=== PATIENT | female | born 1955 | race Caucasian/White ===

== ENCOUNTER → 2024-05-05 | Day surgery (SDC) | payer MEDICARE, BC ==
[2024-05-03 15:47] LABS: BASOPHILS # (AUTO) 0.1 X10'3 (0-0.2); BASOPHILS % (AUTO) 1.2 % (0-1); EOSINOPHILS # (AUTO) 0.1 X10'3 (0-0.9); EOSINOPHILS % (AUTO) 1.5 % (0-6); LYMPHOCYTES # (AUTO) 2.2 X10'3 (1.1-4.8); LYMPHOCYTES % (AUTO) 30.7 % (21-51); MEAN CORPUSCULAR HEMOGLOBIN 32.8 PG (27.0-31.0); MEAN CORPUSCULAR HGB CONC 33.5 g/dL (33.0-36.5); MEAN PLATELET VOLUME 9.1 FL (7.4-10.4); MONOCYTES # (AUTO) 0.6 X10'3 (0-0.9); MONOCYTES % (AUTO) 8.1 % (2-12); NEUTROPHILS # (AUTO) 4.2 X10'3 (1.8-7.7); NEUTROPHILS % (AUTO) 58.5 % (42-75); PRE OP HEMATOCRIT 44.8 % (35.0-45.0); PRE OP PLATELET COUNT 273 X10'3 (140-440); PRE OP WHITE BLOOD COUNT 7.2 10'3 (4.8-10.8); RED BLOOD COUNT 4.57 X10'6 (4.20-5.60); RED CELL DISTRIBUTION WIDTH 14.6 % (11.5-14.5)
[2024-05-03 15:59] LABS: ALBUMIN 3.7 G/DL (3.4-5.0); ALBUMIN/GLOBULIN RATIO 0.9 (1.1-1.5); ALKALINE PHOSPHATASE 96 IU/L (46-116); BLOOD UREA NITROGEN 12 MG/DL (7-18); BUN/CREATININE RATIO 13.5 (10.0-20.0); CALCIUM 9.8 MG/DL (8.5-10.1); CHLORIDE 101 MMOL/L (99-107); CREATININE 0.89 MG/DL (0.40-0.90); PRE OP ALT 33 U/L (30-65); PRE OP ANION GAP 9 (8-16); PRE OP AST 18 U/L (10-37); PRE OP BILIRUB, TOTAL 0.5 MG/DL (0.0-1.0); PRE OP GLUCOSE 102 MG/DL (70-104); PRE OP SODIUM 137 MMOL/L (135-145); TOTAL CARBON DIOXIDE 27.3 MMOL/L (24-32); eGFR 63 ML/MIN
[~2024-05-05] VITALS: Ht 172.7 cm; Wt 111.1 kg
[2024-05-05] VITALS (10 sets, daily range): BP systolic 148–162; BP diastolic 70–90; PULSE 60–73; RESP 14–22; TEMP 98.2; O2SAT 94–97
[~2024-05-05] MED LIST: APIX5TAB3 PO; BUPIVACAINE liposomal/PF 13.3 MG/ML vial IM ONE; BUPIVAcaine/PF 2.5mg/ml (0.25%) 10ml vial ONE; DILT240C47 PO; HYDROcodone/acetaminophen 5mg/325mg tablet PO ONE; LIDOcaine 1% 30ml preserv. free vial ONE; VALS1TAB81 PO; enalaprilat dihydrate 2.5mg/2ml vial IV PRN; fentaNYL/PF 50MCG/1 ML 2ML syringe ONE; labetalol 20mg/4ml (5mg/ml) syringe IV PRN; meperidine/PF 25mg/ml syringe IV PRN; methylene blue (5mg/ml) 50mg/10ml ampul IV ONE; morphine 2 MG/ML inj. syringe IV PRN; ondansetron/PF 4mg/2ml inj IV PRN; proCHLORperazine 10 MG/2 ml inj IV PRN; ringers solution, lacted 1,000 ML IV SCH
[2024-05-05] MEDS: famotidine 20mg tablet PO ONE (11:18)
[2024-05-05] MEDS: ringers solution, lacted 1,000 ML IV SCH (11:18)
[2024-05-05] MEDS: cefazolin 2gm/D5W 100mL 100 ML IV ONE (11:18)
[2024-05-05] MEDS: methylene blue (5mg/ml) 50mg/10ml ampul IV ONE (12:21)
[2024-05-05] MEDS: BUPIVAcaine/PF 2.5 mg/ml (0.25%) 30ml vial IJ ONE (13:15)
[2024-05-05] MEDS: morphine 4 MG/ML inj SYRINge IV PRN (14:29)
== END | disposition home or self-care (01) ==
LOC: PAS 10:13
PROVIDERS: ATTEND Surgery
DX: D05.11 Intraductal carcinoma in situ of right breast (principal); I10 Essential (primary) hypertension; E66.9 Obesity, unspecified; I48.91 Unspecified atrial fibrillation; I25.2 Old myocardial infarction; M19.90 Unspecified osteoarthritis, unspecified site; Z85.828 Personal history of other malignant neoplasm of skin; Z79.01 Long term (current) use of anticoagulants; Z79.899 Other long term (current) drug therapy; Z98.891 History of uterine scar from previous surgery; Z98.890 Other specified postprocedural states; Z68.37 Body mass index [BMI] 37.0-37.9, adult; Z80.1 Family history of malignant neoplasm of trachea, bronchus and lung; Z80.3 Family history of malignant neoplasm of breast
CPT/HCPCS: 19301; 36415; 38525; 38900; 76098; 80053; 82948; 85025; 93005; A4215; A4618; A6258; A7000; C9290; J0690; J2001; J2270; J3010; J3490; J7030; J7120; Q9968; Z7506; Z7508; Z7512; Z7610